=== PATIENT | female | born 1990 | race Caucasian/White ===

== ENCOUNTER 2024-09-04 14:03 | Inpatient (IN) | payer BC, MEDICAID ==
[~2024-09-04] VITALS: Ht 154.9 cm; Wt 76.2 kg
[2024-09-04 15:11] LABS: Urine Bacteria FEW /hpf (None Seen); Urine Blood TRACE /uL (Negative); Urine Clarity Ex.Turbid (Clear); Urine Color Light-Orange (Yellow); Urine Mucus FEW (None Seen); Urine Protein, UAD 1+ (Negative); Urine Specific Gravity 1.035 (1.001-1.035); Urine Squamous Epithelial Cell MOD /hpf (<5); Urine Urobilinogen 3 mg/dL (Negative); Urine WBC 22 /hpf (0 - 5)
--- NOTE | 2024-09-04 15:15 | DVH ---
EXAM: US BIOPHYSICAL PROFILE HISTORY: full term COMPARISON: None TECHNIQUE: Multiple transabdominal real-time grayscale sonographic images through the gravid uterus of the fetus with duplex Doppler color flow and M-mode spectral analysis Findings/Impression: Single live intrauterine in vertex presentation with heart rate of 158 bpm. Sonograph er notes visualized activity and respirations. Biophysical profile was performed with 2 points for respirations, 2 points for movement, 2 points for tone and 2 points for amniotic fluid index. Biophysical profile score of 8/8. Amniotic fluid is within normal limits with CLOTILDE 12.6 cm and MVP 3.5 cm. Normal CLOTILDE (5-25 cm) Normal MVP (2-8 cm)
[2024-09-04 15:17] LABS: Barbiturate Scree,Urine Neg (NEGATIVE)
--- NOTE | 2024-09-04 15:17 | DVH ---
EXAM: US OB ULTRASOUND COMP GTR 14 WKS CLINICAL HISTORY: emilia/full term COMPARISON: None TECHNIQUE: Grayscale, color-flow Doppler, and spectral Doppler ultrasound of the pelvis is performed by transabdominal technique. Findings: Single live intrauterine in vertex presentation with heart rate of 144 bpm. Cervical os is suboptimally visualized . Placenta is anterior in location without evidence of previa or abruption. Limited evaluation of anatomy. Estimated gestational age 39 weeks 0 days based on parameters which include biparietal diameter 9.6 cm, head circumference 33.9 cm, abdominal circumference 35.1 cm, and femur length 7.[address] ratios within normal limits. Estimated weight 3653 g (8 lbs 1 oz). Impression: 1. Single live intrauterine in vertex presentation with heart rate of 144 bpm. 2. Estimated gestational age 39 weeks 0 days with estimated date of confinement 09/11/2024.
[2024-09-04 15:31] LABS: Amphetamine Screen, Urine Neg (NEGATIVE); Benzodiazephine Screen, Urine Neg (NEGATIVE); Cannabinoid Screen, Urine Neg (NEGATIVE); Cocaine Screen, Urine Neg (NEGATIVE); Opiate Scree,Urine Neg (NEGATIVE); Phencyclidine Screen, Urine Neg (NEGATIVE)
[2024-09-04] MEDS ORDERED: LIDOCAINE 2%HCL (LOCAL ANESTH.) INJ 20ML MDV IJ PRN (16:00)
[2024-09-04] MEDS ORDERED: BUTORPHANOL TARTRATE 2 MG/1 ML VIAL IV PRN ×2 (16:00)
[2024-09-04] MEDS: LACTATED RINGER'S 1,000 ML IV SCH (16:32)
[2024-09-04] MEDS: LACT. RINGERS/OXYTOCIN 20UNITS 1,000 ML IV SCH (16:52)
[2024-09-04 16:56] LABS: Basophils # (auto) 0 10 ^3/uL (0-0.2); Basophils % (auto) 0.3 % (0.0-2.0); Eosinophils # (auto) 0.1 10 ^3/uL (0-0.8); Eosinophils % (auto) 1.3 % (0.0-7.0); Hematocrit 36.2 % (36.0-46.0); Hemoglobin 12.5 g/dL (12.2-16.2); Lymphocytes # (auto) 2.4 10 ^3/uL (0.4-5.4); Lymphocytes % (auto) 31.1 % (10.0-50.0); Mean Corpuscular Hgb Conc. 34.5 g/dL (32.0-36.0); Mean Corpuscular Volume 89.8 fL (80.0-100.0); Monocytes # (auto) 0.7 10 ^3/uL (0-1.3); Monocytes % (auto) 8.6 % (0.0-12.0); Neutrophils # (auto) 4.5 10 ^3/uL (1.6-8.6); Neutrophils % (auto) 58.7 % (37.0-80.0); Nucleated Red Blood Cells % 0.1 %; Platelet Count (auto) 179 10^3/uL (140-450); Red Blood Cells 4.03 10^6/uL (4.0-5.20); Red Cell Distribution Width 13.7 % (11.8-14.3); White Blood Cell 7.6 10^3/uL (4.4-10.8)
[2024-09-04] MEDS: PENICILLIN G POT 5MIL/D5 50ML 50 ML IV ONE (17:01)
[2024-09-04 17:12] LABS: INR 0.9 (0.9-1.15); Prothrombin Time 9.6 sec (9.3-11.8)
[2024-09-04 17:15] LABS: Alanine Aminotransferase 13 U/L (7-40); Albumin 3.6 g/dL (3.2-4.8); Anion Gap 9 (5-15); Aspartate Aminotransferase 19 U/L (13-40); BUN/Creatinine Ratio 13.3 (10.0-20.0); Bilirubin, Total 0.5 mg/dL (0.2-1.0); Calcium 9.7 mg/dL (8.7-10.4); Carbon Dioxide 20 mmol/L (20-31); Potassium 3.8 mmol/L (3.5-5.1); Sodium 139 mmol/L (136-145); Total Protein 6.2 g/dL (5.7-8.2)
[2024-09-04 17:47] LABS: Blood Urea Nitrogen 6 mg/dL (9-23); Chloride 110 mmol/L (98-107); Glucose 71 mg/dL (74-106)
[2024-09-04 17:48] LABS: Alkaline Phosphatase 150 U/L (46-116)
[2024-09-04] MEDS: NALOXONE HCL 0.4 MG/ML VIAL IV ONE (20:45)
[2024-09-04] MEDS: ePHEDrine SULFATE 50 MG/ML AMP IV ONE (20:45)
[2024-09-04] MEDS: LACTATED RINGER'S 1,000 ML IV ONE (21:12)
[2024-09-04] MEDS: PENICILLIN G POTASSIUM 2,500,000 UNITS in D5W 5% 50 ML IV SCH (21:12)
[2024-09-04] MEDS: ROPIVACAINE HCL 200 ML ONE (21:14)
[2024-09-05] MEDS: PHISODERM TOP SOLN 240ML BTL TOP PRN (04:51)
[2024-09-05] MEDS: DERMOPLAST 60ML BOTTLE TOP PRN (04:51)
[2024-09-05] MEDS: WITCH HAZEL-GLYCERIN PAD TOP PRN (04:51)
--- NOTE | 2024-09-05 08:32 | DVHHP2 ---
OB CC & HPI Date Date of Admission: Sep 04, 2024 Patient Identification: : 4 Para: 3 EDC: Sep 10, 2024 EGA: 39 + Chief Complaints: Reason for admission: other (Augmentation... left [facility] after prolonged induction failed refused section.... fetu lacy but reasuring and reactive) Indication for induction: other (fetus low baseline 39 + weeks " favorable cervix" multip [facility] left her failed induction) Admission Nurse Assessment Rev: Yes History of Present Complaints Dates confirmed by 10 wk US Past Medical History Cardiac: No pertinent Hx Pulmonary: No pertinent Hx Central Nervous System: No pertinent Hx GI: No pertinent Hx Hemotology/Oncology: No pertinent Hx Hepatobiliary: No pertinent Hx Psychiatric: No pertinent Hx Musculoskeletal: No pertinent Hx Rheumotologic: No pertinent Hx Infectious Disease: No peritnent Hx ENT: No pertinent Hx Renal/: No pertinent Hx Endocrine: No pertinent Hx Dermatology: No pertinent Hx Past Surgical History: No pertinent Hx OB History OB History Care: Good Care Ultrasounds: Normal mid trimester US Obstetrical Complications: None Medical Complications: None Allergies: Coded Allergies: NO KNOWN ALLERGIES (Unverified , 09/04/24) Current Medications Current Medications Medications (Trade) Dose Ordered Sig/Izabela Route PRN Reason Start Time Stop Time Status Last Admin Lactated Ringer's 1,000 ml @ 125 mls/hr Q8H IV 09/04/24 16:00 09/04/24 16:32 Bridger Ifeoma (Tucks) 1 pad PRN PRN TOP PERINEAL AREA DISCOMFORT 09/04/24 16:00 09/05/24 04:51 Sodium Lauryl Sulfate (Phisoderm) 240 ml PRN PRN TOP PERINEAL AREA DISCOMFORT 09/04/24 16:00 09/05/24 04:51 Benzocaine (Dermoplast) 1 applic PRN PRN TOP PERINEAL AREA DISCOMFORT 09/04/24 16:00 09/05/24 04:51 Butorphanol Tartrate (Stadol Injection) 1 mg Q4HPRN PRN IV MODERATE PAIN (4-6 PAIN SCALE) 09/04/24 16:00 Butorphanol Tartrate (Stadol Injection) 2 mg Q4HPRN PRN IV SEVERE PAIN (7-10 PAIN SCALE) 09/04/24 16:00 Lidocaine HCl (Xylocaine) 20 ml ONCE PRN IJ PERINEAL AREA DISCOMFORT 09/04/24 16:00 Oxytocin 1,000 ml @ 6 ml/hr Q24H IV 09/04/24 16:15 09/04/24 16:52 Penicillin G Potassium [id number] units/Dextrose 50 ml @ 100 mls/hr Q4H IV 09/04/24 20:15 09/05/24 04:50 Family & Social History Family/Social History Blood Type: O+ Rubella: immune RPR/VDRL: Negative GBS Status: Negative HBsAG: Unknown Review of Systems Constitutional: No symptom reported Ears, Nose, & Throat: No symptom reported Eyes: No symptom reported Pulmonary/Respiratory: No symptom reported Cardiovascular: No symptom reported Gastrointestinal: No symptom reported Genitourinary: No symptom reported Musculoskeletal: No symptom reported Skin: No symptom reported Psychiatric: No symptom reported Endocrine: No symptom reported Hemotologic/Lymphatic: No symptom reported OB Admission Exam Physical Exam HEENT: TMs Normal, Fontanelles Normal, Nasal Mucosa Normal, Eyes non-injected, Oropharynx Normal, PERRLA, Moist Membranes, EOMI Heart: Rhythm Normal Lungs: Clear Abdomen: Non tender Extremities: Normal Reflexes: Normal Cervical Dilatation: 2cm Effacement: 50% Station: Ballotable Membranes: Intact Heart Rate: 120's (110's baseline) Short Term Variability: Present Air Pollution Engineer Variability: Average (6-25) Contractions on Admission: >10 Minutes Apart Intensity: Mild OB Plan Plan Admitting Diagnosis: 39 + weeks, lacy, multip , favorable cx, failed [facility] induction left as told she needed section Plan: Induction Induction Methd: Pitocin protocol RYAN LOVELACE DO Sep 05, 2024 08:32
--- NOTE | 2024-09-05 08:35 | DVHPN2 ---
Chief Complaints Patient reports: No new complaints, Feels better Nursing reports: No new complaints, No abdominal pain, No chest pain, No dizziness, No cough Objective Vitals afebrile vss Medications Current Medications Medications (Trade) Dose Ordered Sig/Izabela Route PRN Reason Start Time Stop Time Status Last Admin Benzocaine (Dermoplast) 1 applic PRN PRN TOP PERINEAL AREA DISCOMFORT 09/04/24 16:00 09/05/24 04:51 Butorphanol Tartrate (Stadol Injection) 1 mg Q4HPRN PRN IV MODERATE PAIN (4-6 PAIN SCALE) 09/04/24 16:00 Butorphanol Tartrate (Stadol Injection) 2 mg Q4HPRN PRN IV SEVERE PAIN (7-10 PAIN SCALE) 09/04/24 16:00 Lactated Ringer's 1,000 ml @ 125 mls/hr Q8H IV 09/04/24 16:00 09/04/24 16:32 Lidocaine HCl (Xylocaine) 20 ml ONCE PRN IJ PERINEAL AREA DISCOMFORT 09/04/24 16:00 Oxytocin 1,000 ml @ 6 ml/hr Q24H IV 09/04/24 16:15 09/04/24 16:52 Penicillin G Potassium [id number] units/Dextrose 50 ml @ 100 mls/hr Q4H IV 09/04/24 20:15 09/05/24 04:50 Sodium Lauryl Sulfate (Phisoderm) 240 ml PRN PRN TOP PERINEAL AREA DISCOMFORT 09/04/24 16:00 09/05/24 04:51 Bridger Kovacsel (Tucks) 1 pad PRN PRN TOP PERINEAL AREA DISCOMFORT 09/04/24 16:00 09/05/24 04:51 Comment cervix 4.5 75% -3, firm engaged , intact, . General: Normal Head/Eyes: Normal ENT: Normal Neck: Normal Lungs: Normal Cardiovascular: Normal Abdominal: Normal Musculoskeletal: Normal Extremities: Normal Skin: Normal Studies Laboratory Tests 09/04/24 16:18 Test 09/04/24 16:18 Range/Units Serum Glucose 71 L 74-106 mg/dL Ass/Plan Assessment early labor cont augmentation with Pit ... new Epidural old pulled out Plan see above , expectant mgt RYAN LOVELACE DO Sep 05, 2024 08:35
--- NOTE | 2024-09-05 09:31 | DVH ---
LIMITED OB ULTRASOUND > 14 WKS: HISTORY: INDUCTION TECHNIQUE: Multiple real-time grayscale images of the gravid uterus with M-mode spectral analysis. TRANSDUCER: Transabdominal COMPARISON: 09/04/2024 FINDINGS: IUP single live fetus in cephalic presentation with heart rate of 113 beats per minute. IMPRESSION: IUP single live fetus in cephalic presentation with heart rate of 113 beats per minute.
[2024-09-05] MEDS: ROPIVACAINE HCL 200 ML ONE ×2 (11:52→22:43)
[2024-09-05] MEDS: Lidocaine W-Epinephrine 1.5%-1:200,000 INJ 10ml Vial ONE (22:24)
[2024-09-05] MEDS: fentaNYL CITRATE 100 MCG/2 ML VL IV ONE (22:42)
[2024-09-05] MEDS: LIDOCAINE HCL 2 %PF INJ 10ML AMP IJ ONE (22:54)
[2024-09-05] MEDS: FAMOTIDINE (10MG/ML) 2ML VL IV ONE (22:58)
--- NOTE | 2024-09-05 23:20 | EPIDURAL ---
Anesthesia Procedural Note - Epidural Informed consent obtained?: Yes Medication Administered: Fentanyl 100 mcg Sterile prept drape: Yes Spinal level of insertion: L3-L4 Test dose of lidocaine & Epine: Negative Infusion started: Yes Start time: 22:00 End time: 22:25 Procedure description Procedure description: Called for disconnected epidural catheter. Epidural catheter removed for the sake of infection prevention at 2200. Patient would like another placed. Chart reviewed, history taken and patient examined. Patient is here for induction of labor at 39+1, receiving pitocin augmentation. Informed consent for CSE obtained. Sitting position, sterile prep and drape. Time out done at 2203 (BP 137/63 HR 75 spO2 99). L3-4 space infiltrated with 1% lido. Epidural needle placed with NADEEM at 4.5 cm. 25G spinal needle +clear CSF. 15mcg fentanyl given IT at 2206 (BP 133/63 HR 93 spO2 99). Epidural catheter secured at 12cm. Aspiration and test dose (3cc 1.5% lido with epi) negative at 2208 (BP 136/76 HR 81 spO2 98). 85mcg fentanyl given via epidural at 2211 (BP 138/71 HR 75 spO2 99). Patient reports good pain relief. 0.2% ropivacaine started at 3 (BP 120/63 HR 75 spO2 99), new bottle and tubing used. Will follow as needed. EBONY GALLAGHER MD Sep 05, 2024 23:19
[2024-09-05] MEDS ORDERED: diphenhdrAMINE HCL 50 MG/1 ML VL IV PRN (23:30)
[2024-09-06] VITALS (16 sets, daily range): BP systolic 102–128; BP diastolic 59–82; PULSE 65–95; RESP 13–19; TEMP 97.9–98.7; O2SAT 95–99
[2024-09-06] MEDS ORDERED: ONDANSETRON HCL 4 MG/2 ML VIAL IV PRN ×3 (00:45→08:30)
[2024-09-06] MEDS ORDERED: LACTATED RINGER'S 1,000 ML IV SCH ×2 (06:00→06:45)
--- NOTE | 2024-09-06 06:10 | DVHPN2 ---
Chief Complaints Patient reports: No new complaints, Feels better, Other (Patient complete for over 2 hrs at 1+ station ; Occiput posterior... tried to rotate infant with gentle Kiowi Vacuum but no progress or rotation. 2 pop offs without lac. Recommended urgnet section as no progress and fetus developing short term tachycardia on recovery from contraction. ) Nursing reports: No new complaints, No abdominal pain, No chest pain, No dizziness, No cough Objective Vitals Vital Signs Date Time Temp Pulse Resp B/P (MAP) Pulse Ox O2 Delivery O2 Flow Rate FiO2 09/05/24 22:42 138/71 Medications Current Medications Medications (Trade) Dose Ordered Sig/Izabela Route PRN Reason Start Time Stop Time Status Last Admin Diphenhydramine HCl (Benadryl Injection) 25 mg Q4HP PRN IV FOR ITCHING 09/05/24 23:30 Lactated Ringer's 1,000 ml @ 125 mls/hr Q8H IV 09/06/24 06:00 Ondansetron HCl (Zofran) 4 mg Q4HPRN PRN IV NAUSEA / VOMITING 09/06/24 00:45 General: Normal Head/Eyes: Normal ENT: Normal Neck: Normal Lungs: Normal Cardiovascular: Normal Abdominal: Normal Musculoskeletal: Normal Extremities: Normal Skin: Normal Studies Laboratory Tests 09/04/24 16:18 Test 09/04/24 16:18 Range/Units Serum Glucose 71 L 74-106 mg/dL Ass/Plan Assessment Failure to progress 1+ station complete Plan Emergent section .... OR crew called 5:50 AM Consent : Risks , benefits and alternatives discussed not limited to infection, bleeding , transfusion, acute and chronic pain, damage to adjacent organs, bladder, ureters, vessels, muscle, fascia, .... Rare but also risk of ID, Stroke, DVT , PE, and discussed. Patient , Patient's mom , and Surrogate mother want to to proceed with section . All questions answered and encouraged. RYAN LOVELACE DO Sep 06, 2024 06:10
[2024-09-06] MEDS ORDERED: miSOPROStol 100 mcg TAB SL PRN (06:15)
[2024-09-06] MEDS ORDERED: METHYLERGONOVINE MALEATE 0.2 MG/ML AMP IM PRN (06:15)
[2024-09-06] MEDS ORDERED: CARBOPROST TROMETHAMINE 250 MCG/1ML VIAL IM PRN (06:15)
[2024-09-06] MEDS ORDERED: LIDOCAINE HCL 2 %PF INJ 10ML AMP IJ ONE (06:30)
--- NOTE | 2024-09-06 06:31 | DVHOP2 ---
Operative Report - 2 Report Details Date: 09/06/24 Preop Diagnosis: 39 weeks +, failure to progress, 10cm 1+ station Postop Diagnosis: same Surgeon: Ezequiel Lovelace Anesthesiologist: Frederic PADGETT Anesthesia: Regional Drains: Ramirez Catheter Implant: none Consent: The patient was informed of the risks and benefits of the procedure. These include but are not limited to complications of anesthesia, postoperative infection, incomplete relief of symptoms, recurrence of symptoms, damage to blood vessels, nerves and tendons, deep venous thrombosis, pulmonary embolism and possible need for repeat surgery in the future. Complications: none Estimated Blood Loss: 1000cc Fluids: see anesthesia log Findings: Male APGARS 8/9 Indications for Surgery: Failure to progress; Name of Procedure Performed primary LTCS Procedure Details Procedure Details: Patient taken to OR Epidural bolused , adequate analgesia assured. LCSC incision made with scalpel to rectus fascia; Rectus fascia extended laterally ; rectus muscles seperated in midline peritoneum entered with sharp dissection above bladder and carried superiorly and inferiorly. Bladder retractor positioned / bladder flap created with sharp and blunt dissection. LTCS incision made down to chorionic membranes. Membranes entered clear amniotic fluid ; one and placed lower pelvis and gentle palp pressure applied under the drape by assistant in nursing RN . Occiput posterior as anticipated; head at this point essentially delivered through hysterotomy incision spontaneously; nose and mouth bulb suction and shoulders and torso delivered also essentially spontaneously. Infant had immediate cry and tone delayed cord clamp performed 60 sec... umbilical blood gas and umbilical cord blood sample taken. Placenta delivered uterus somewhat boggy but responded with massage and Pitocin. After assuring all POC's removed with wet lap hysterotomy incision closed with double layer 0- Vicryl running continuous. Complete hemostasis achieved with good uterine tone. Bladder flap incorporated in final hysterotomy closure. We copiously irrigated cleared abd gutters and cul de sacs of all clots and debris. Peritoneum closed 2-0 Vicryl .... Rectus fascia closed with continuous Looped double layer PDS suture. Campers and Scarpies fascia closed with interrupted 2-0 Chromic sutures. Skin closed with niay,. and maternal condition stable but guarded. Specimen: Placenta, bl gas , umbilical bood sample Condition Good Disposition PACU ; to nursery RYAN LOVELACE DO Sep 06, 2024 06:31
[2024-09-06] MEDS ORDERED: MORPHINE SULFATE 4 MG/ML SYR/VIAL IV PRN (06:45)
[2024-09-06] MEDS ORDERED: LACT. RINGERS/OXYTOCIN 20UNITS 1,000 ML IV SCH (06:45)
[2024-09-06] MEDS ORDERED: MORPHINE SULF PF 5 MG/10 ML VIAL ONE (06:47)
[2024-09-06] MEDS ORDERED: fentaNYL CITRATE 100 MCG/2 ML VL ONE (06:47)
[2024-09-06] MEDS ORDERED: KETOROLAC TROMETH 30 MG/ML 1ML VIAL ONE (06:48)
[2024-09-06] MEDS ORDERED: ePHEDrine SULFATE 50 MG/ML AMP ONE (06:48)
[2024-09-06] MEDS ORDERED: GLYCOPYRROLATE 0.2 MG/ML 1ML VIAL ONE (06:48)
[2024-09-06] MEDS ORDERED: KETOROLAC TROMETH 30 MG/ML 1ML VIAL IV PRN (08:30)
[2024-09-06] MEDS ORDERED: diphenhdrAMINE HCL 50 MG/1 ML VL IV PRN (08:30)
[2024-09-06] MEDS ORDERED: DexAMETHasone SOD PHOS 10MG/1ML VIAL INJ IV PRN (08:30)
[2024-09-06] MEDS ORDERED: NALOXONE HCL 0.4 MG/ML VIAL IV PRN (08:30)
[2024-09-06] MEDS ORDERED: DIPHENOXYLATE W/ATROPINE 2.5 MG TAB PO SCH (10:00)
[2024-09-06] MEDS ORDERED: ceFAZolin 1GM/50ML 50 ML IV SCH (14:00)
[2024-09-06] MEDS: ACETAMINOPHEN IV 1000 MG/100ML (10MG/ML) IV PRN (14:40)
[2024-09-06] MEDS: ceFAZolin 1GM/50ML 50 ML IV SCH (17:41)
[2024-09-06] MEDS: LACT. RINGERS/OXYTOCIN 20UNITS 500 ML IV ONE ×2 (18:07)
[2024-09-06] MEDS: LIDOCAINE HCL 2 %PF INJ 10ML AMP IJ ONE (18:08)
[2024-09-06] MEDS: LIDOCAINE 2%HCL (LOCAL ANESTH.) INJ 20ML MDV ONE (18:08)
[2024-09-06] MEDS: NALOXONE HCL 0.4 MG/ML VIAL IV ONE (18:08)
[2024-09-06] MEDS: LIDOCAINE 2%HCL (LOCAL ANESTH.) INJ 10ml MDV ONE (18:09)
[2024-09-06] MEDS: ONDANSETRON HCL 4 MG/2 ML VIAL IV ONE (18:16)
[2024-09-06] MEDS: KETOROLAC TROMETH 30 MG/ML 1ML VIAL IV ONE (18:16)
[2024-09-06] MEDS: LACTATED RINGER'S 1,000 ML IV ONE (18:17)
[2024-09-06] MEDS: ePHEDrine SULFATE 50 MG/ML AMP IV ONE (18:17)
[2024-09-06] MEDS: ceFAZolin 2 GM/D5W50ml 50 ML IV ONE (18:18)
[2024-09-07] VITALS (14 sets, daily range): BP systolic 100–137; BP diastolic 54–99; PULSE 70–89; RESP 14–18; TEMP 97.7–98.7; O2SAT 95–98
[2024-09-07] MEDS ORDERED: ceFAZolin 1GM/50ML 50 ML IV SCH (01:45)
[2024-09-07] MEDS: ceFAZolin 1GM/50ML 50 ML IV SCH (02:10)
[2024-09-07] MEDS: HYDROcodone-ACET 5/325MG TAB PO PRN (02:44)
--- NOTE | 2024-09-07 05:54 | DVHPN2 ---
Progress Note Date Seen: Sep 07, 2024 Subjective POD#1 s/p 1' C/S for arrest of descent S: Pain is moderate to severe, controlled w/ meds. Lochia moderate. No fever/chills. + flatus. NO BM yet vital signs Vital Sign Date Time Temp Pulse Resp B/P (MAP) Pulse Ox O2 Delivery O2 Flow Rate FiO2 09/07/24 04:00 80 15 106/62 (77) 95 09/07/24 03:00 98.7 98.7 09/06/24 19:00 Room Air Total Intake and Output 09/06/24 09/06/24 09/07/24 15:00 23:00 07:00 Output Total 300 ml 650 ml 1525 ml Balance -300 ml -650 ml -1525 ml medications Current Medications Medications Dose Ordered Sig/Izabela Route Start Time Stop Time Status Last Admin Dose Admin Leonidasleonard Ifeoma 1 pad PRN PRN TOP 09/04/24 16:00 09/05/24 04:51 1 PAD Sodium Lauryl Sulfate 240 ml PRN PRN TOP 09/04/24 16:00 09/05/24 04:51 240 ML Benzocaine 1 applic PRN PRN TOP 09/04/24 16:00 09/05/24 04:51 1 APPLIC Lidocaine HCl 20 ml ONCE PRN IJ 09/04/24 16:00 Lactated Ringer's 1,000 ml @ 125 mls/hr Q8H IV 09/06/24 06:45 Morphine Sulfate 2 mg Q4HP PRN IV 09/06/24 06:45 Hold Diphenhydramine HCl 25 mg Q4HP PRN IV 09/06/24 08:30 Ondansetron HCl 4 mg Q4HP PRN IV 09/06/24 08:30 Ketorolac Tromethamine 30 mg Q6HP PRN IV 09/06/24 08:30 09/11/24 08:29 Hold Acetaminophen 1,000 mg Q8HP PRN IV 09/06/24 10:15 09/07/24 06:01 09/06/24 23:17 1,000 MG Cefazolin Sodium 50 ml @ 100 mls/hr Q8H IV 09/07/24 01:00 09/07/24 10:00 09/07/24 02:10 100 MLS/HR Acetaminophen/ Hydrocodone Bitart 2 tab Q4HPRN PRN PO 09/07/24 02:30 09/07/24 02:44 2 TAB laboratory and microbiology Laboratory Tests 09/04/24 16:18 Test 09/04/24 16:18 Range/Units Serum Glucose 71 L 74-106 mg/dL Objective O: AFVSS Chest: heart and lung sounds normal. Abd soft, non-tender, fundus firm, BS, no rebound or guarding, Incision - dressing and incision clean, dry, intact Ext Neg Homans, Non-tender, edema Lochia - minimal Labs Pending for today Assessment/Plan POD#1 s/p 1' C/S doing well Plan: Supportive care Pain control Check CBC today. Plan discussed with: Patient KOFI ABBOTT DO Sep 07, 2024 05:54
[2024-09-07] MEDS: ACETAMINOPHEN IV 1000 MG/100ML (10MG/ML) IV PRN (07:41)
[2024-09-07 08:06] LABS: RPR Non Reactive (Non Reactive)
[2024-09-07 09:34] LABS: Basophils # (auto) 0 10 ^3/uL (0-0.2); Basophils % (auto) 0.2 % (0.0-2.0); Eosinophils # (auto) 0.1 10 ^3/uL (0-0.8); Eosinophils % (auto) 0.5 % (0.0-7.0); Hematocrit 27.4 % (36.0-46.0); Hemoglobin 9.1 g/dL (12.2-16.2); Lymphocytes # (auto) 2.1 10 ^3/uL (0.4-5.4); Lymphocytes % (auto) 14.2 % (10.0-50.0); Mean Corpuscular Hemoglobin 30.2 pg (28.0-32.0); Mean Corpuscular Hgb Conc. 33.3 g/dL (32.0-36.0); Mean Corpuscular Volume 90.6 fL (80.0-100.0); Monocytes # (auto) 0.6 10 ^3/uL (0-1.3); Monocytes % (auto) 4.3 % (0.0-12.0); Neutrophils # (auto) 12.2 10 ^3/uL (1.6-8.6); Neutrophils % (auto) 80.8 % (37.0-80.0); Platelet Count (auto) 157 10^3/uL (140-450); Red Blood Cells 3.02 10^6/uL (4.0-5.20)
[2024-09-07] MEDS ORDERED: HYDROcodone-ACET 5/325MG TAB PO PRN ×2 (10:00)
[2024-09-07] MEDS: DOCUSATE CALCIUM 240 MG CAP PO SCH (10:00)
[2024-09-07] MEDS: DOCUSATE SOD 100 MG CAP PO SCH (10:45)
[2024-09-07] MEDS: IBUPROFEN 800 MG TAB PO PRN (10:45)
--- NOTE | 2024-09-07 13:56 | DVHPN2 ---
Chief Complaints Patient reports: No new complaints, Feels better, Other (Patient complete for over 2 hrs at 1+ station ; Occiput posterior... tried to rotate infant with gentle Kiowi Vacuum but no progress or rotation. 2 pop offs without lac. Recommended urgnet section as no progress and fetus developing short term tachycardia on recovery from contraction. ) Nursing reports: No new complaints, No abdominal pain, No chest pain, No dizziness, No cough Objective Vitals Vital Signs Date Time Temp Pulse Resp B/P (MAP) Pulse Ox O2 Delivery O2 Flow Rate FiO2 09/07/24 10:40 97.8 76 18 112/66 (81) 98 97.8 09/07/24 07:00 Room Air Medications Current Medications Medications (Trade) Dose Ordered Sig/Izabela Route PRN Reason Start Time Stop Time Status Last Admin Acetaminophen (Ofirmev) 1,000 mg [id number] PRN IV PAIN SCALE 4-6 OR TEMP>100.4 09/07/24 06:45 09/08/24 06:44 09/07/24 07:41 Acetaminophen/ Hydrocodone Bitart ([place] 5/325MG Tab) 1 tab Q4HPRN PRN PO FOR PAIN 1-6 09/07/24 10:00 Acetaminophen/ Hydrocodone Bitart ([place] 5/325MG Tab) 2 tab Q4HPRN PRN PO SEVERE PAIN (7-10 PAIN SCALE) 09/07/24 02:30 09/07/24 02:44 Acetaminophen/ Hydrocodone Bitart ([place] 5/325MG Tab) 2 tab Q4HPRN PRN PO FOR PAIN 7-10 09/07/24 10:00 Dimethicone (Mylicon Tab) 80 mg QID PO 09/07/24 12:00 Docusate Calcium (Surfak Capsule) 240 mg DAILY PO 09/07/24 10:00 Docusate Sodium (Colace Capsule) 100 mg Q12HR PO 09/07/24 10:00 09/07/24 10:45 Ibuprofen (Motrin Tablet) 800 mg Q8HP PRN PO BREAKTHROUGH PAIN 09/07/24 10:00 09/07/24 10:45 General: Normal Head/Eyes: Normal ENT: Normal Neck: Normal Lungs: Normal Cardiovascular: Normal Abdominal: Normal, Soft Musculoskeletal: Normal Extremities: Normal Skin: Normal Studies Laboratory Tests 09/07/24 09:15 09/04/24 16:18 Test 09/04/24 16:18 Range/Units Serum Glucose 71 L 74-106 mg/dL Ass/Plan Assessment s/p pcs Plan pt wants to go home dc home ,fu in 1w GÉNESIS CADE DO Sep 07, 2024 13:56
--- NOTE | 2024-09-07 13:57 | DVHDS2 ---
Obstetrics Discharge Summary Obstetrics Discharge Summary Date of Admission: Sep 04, 2024 Date of Discharge: Sep 07, 2024 Reason For Admission: Onset of Labor Procedures: NST Intrapartum Procedures: (Low Cervical Transverse) Procedures: None Operative Complicat: None Discharge Diagnosis: Term -Delivered Discharge Information: Activity (Other), Diet (Routine), Medications (Name:), Instructions (Routine), Discharge to (Home), Discarge date (09-07) GÉNESIS CADE DO Sep 07, 2024 13:57
[2024-09-07] MEDS ORDERED: HYDR-4072 PO (13:58)
[2024-09-07] MEDS ORDERED: DOCU-94 PO (13:58)
[2024-09-07] MEDS ORDERED: IBUP-1456 PO (13:58)
[2024-09-07] MEDS: SIMETHICONE 80 MG CHEWABLE TABLET PO SCH (14:11)
[2024-09-08 03:10] VITALS: BP 130/68; PULSE 70; RESP 16; TEMP 98.2; O2SAT 97
[2024-09-08 07:15] VITALS: BP 136/87; PULSE 84; RESP 14; TEMP 98.6; O2SAT 99
--- NOTE | 2024-09-08 07:40 | DVHPN2 ---
Chief Complaints Patient reports: No new complaints, Feels better, Other (Patient complete for over 2 hrs at 1+ station ; Occiput posterior... tried to rotate infant with gentle Kiowi Vacuum but no progress or rotation. 2 pop offs without lac. Recommended urgnet section as no progress and fetus developing short term tachycardia on recovery from contraction. ) Nursing reports: No new complaints, No abdominal pain, No chest pain, No dizziness, No cough Objective Vitals Vital Signs Date Time Temp Pulse Resp B/P (MAP) Pulse Ox O2 Delivery O2 Flow Rate FiO2 09/08/24 07:15 98.6 84 14 136/87 (103) 99 98.6 09/08/24 07:01 Room Air Medications Current Medications Medications (Trade) Dose Ordered Sig/Izabela Route PRN Reason Start Time Stop Time Status Last Admin Acetaminophen/ Hydrocodone Bitart ([place] 5/325MG Tab) 1 tab Q4HPRN PRN PO FOR PAIN 1-6 09/07/24 10:00 Acetaminophen/ Hydrocodone Bitart ([place] 5/325MG Tab) 2 tab Q4HPRN PRN PO FOR PAIN 7-10 09/07/24 10:00 Dimethicone (Mylicon Tab) 80 mg QID PO 09/07/24 12:00 09/08/24 06:06 Docusate Calcium (Surfak Capsule) 240 mg DAILY PO 09/07/24 10:00 09/07/24 10:00 Docusate Sodium (Colace Capsule) 100 mg Q12HR PO 09/07/24 10:00 09/07/24 21:56 Ibuprofen (Motrin Tablet) 800 mg Q8HP PRN PO BREAKTHROUGH PAIN 09/07/24 10:00 09/08/24 05:23 General: Normal Head/Eyes: Normal ENT: Normal Neck: Normal Lungs: Normal Cardiovascular: Normal Abdominal: Normal, Soft Musculoskeletal: Normal Extremities: Normal Skin: Normal Studies Laboratory Tests 09/07/24 09:15 09/04/24 16:18 Test 09/04/24 16:18 Range/Units Serum Glucose 71 L 74-106 mg/dL Ass/Plan Assessment s/p pcs Plan dc home fu in [facility] GÉNESIS CADE Sep 08, 2024 07:40
--- NOTE | 2024-09-08 07:41 | DVHDS2 ---
Obstetrics Discharge Summary Obstetrics Discharge Summary Date of Admission: Sep 04, 2024 Date of Discharge: Sep 08, 2024 Reason For Admission: Onset of Labor Procedures: NST Intrapartum Procedures: (Low Cervical Transverse) Procedures: None Operative Complicat: None Discharge Diagnosis: Term -Delivered Discharge Information: Activity (Other), Diet (Routine), Medications (Name:), Instructions (Routine), Discharge to, Discarge date (09-08) GÉNESIS CADE DO Sep 08, 2024 07:41
[2024-09-10 11:06] LABS: Treponema Pallidum Ab LC Non Reactive (Non Reactive)
== END 2024-09-08 08:23 | disposition home or self-care (01) | DRG 788 ==
LOC: LDRP 14:03 → OBSVTOIN 15:42 → LDRP 19:40
PROVIDERS: ADMIT Obstetrics & Gynecology; ATTEND Obstetrics & Gynecology
PROC: 10D00Z1 Extraction of Products of Conception, Low, Open Approach (ICD-10-PCS; principal; 2024-09-06 07:08)
DX: O62.1 Secondary uterine inertia (principal); Z37.0 Single live birth; Z3A.39 39 weeks gestation of pregnancy; O61.9 Failed induction of labor, unspecified
CPT/HCPCS: 36415; 59025; 62282; 76805; 76815; 76818; 80053; 80307; 81001; 81002; 85025; 85610; 85730; 86592; 86780; 86850; 86900; 86901; 94760; 94762; 96360; 96361; 96365; 96366; 96374; G0378; J0131; J1885; J2003; J2405; J2540; J2590; J3490; J7060